=== PATIENT | female | born 1985 | race Caucasian/White ===

== ENCOUNTER 2017-10-25 21:08 | Inpatient (IN) | payer BC, OTHER ==
[~2017-10-25 21:08] MED LIST: Bupivacaine/Epinephrine 0.25% 30 ML VIAL ONE
[2017-10-25] MEDS: Lactated Ringer's 1,000 ML IV SCH (21:30)
[2017-10-25 21:44] VITALS: BMI 34.9
[2017-10-25] MEDS ORDERED: Butorphanol Tartrate 1 MG/ML VIAL SLOW IVP PRN (21:58)
[2017-10-25] MEDS ORDERED: Ondansetron HCl/PF 4 MG/2 ML Vial IVP PRN (21:58)
[2017-10-25] MEDS ORDERED: Acetaminophen 500 MG TAB PO PRN (21:58)
[2017-10-25] MEDS ORDERED: HYDROcodone/Acetaminophen 5/325 mg Tablet PO PRN ×2 (21:58)
[2017-10-25] MEDS ORDERED: Ibuprofen 800 MG TAB PO PRN (21:58)
[2017-10-25] MEDS ORDERED: Lidocaine 1% (PF) 30 ML VIAL SC PRN (21:58)
[2017-10-25] MEDS ORDERED: Zolpidem Tartrate 5 MG TAB PO PRN (21:58)
[2017-10-25] MEDS ORDERED: NS / Oxytocin 40 units/1000ml 1,000 ML IV PRN (21:58)
[2017-10-25] MEDS ORDERED: Promethazine HCl 25 MG/ML VIAL IM PRN (21:58)
--- NOTE | 2017-10-25 22:08 | PDOC.LDHP ---
Labor and Delivery H&P Chief complaint: contractions HPI: 32 yo WF presents c/o regular UCs at home. Denies SROM, bleeding. She is releasing infant. Current gestational age (weeks): 38 Due date: 11/09/17 Dating criteria: first trimester ultrasound Grav: 5 Para: 4 OB History Details: PNC with Dr. Wong. H/o x4 at term. Current complications: none Abnormal US findings: No Past Medical History: none Current medications: pre- vitamins Previous surgical history: none Allergies/Adverse Reactions: Allergies Allergy/AdvReac Type Severity Reaction Status Date / Time Sulfa (Sulfonamide Allergy Verified 10/31/15 00:31 Antibiotics) Social history: other - Physical Exam Vital signs reviewed and normal: yes General: NAD Heart: RRR Lungs: CTAB Abdomen: gravid Extremeties: trace edema [place] contractions every: q 5-7 mins - Vaginal Exam cm dilated: 6 Effacement: 75% Station: -1 - OB Labs Blood type: O RH: positive Antibody Screen: negative HIV: negative RPR: negative HEPSAg: negative 1 hour GCT: negative GBS: positive Rubella: immune - Assessment L&D Assessment: term patient in labor - Plan Plan: admit to L&D, labor augmentation if indicated, GBS antibiotic prophylaxis
[2017-10-25] MEDS ORDERED: Penicillin G Potassium 5 MILL.UNITS in Sodium Chloride 0.9% 100 ML IVPB SCH (22:15)
[2017-10-25] MEDS ORDERED: Lactated Ringer's 1,000 ML IV SCH (22:15)
[2017-10-25] MEDS ORDERED: NS w/ Oxytocin 10 units 500 ML IV SCH (22:15)
[2017-10-25 22:36] LABS: Hemoglobin 13.3 g/dL (12.0-16.0); Mean Corpuscular HGB CONC 34.2 g/dL (32.0-36.0); Mean Corpuscular Volume 90.5 fl (81.0-99.0); Mean Platelet Volume 7.6 fL (7.4-10.4); Platelet Count 233 thou/uL (130-400); RBC Distribution Width 12.3 % (11.5-14.5); Red Blood Cell (RBC) Count 4.28 mill/uL (4.20-5.40); White Blood Cell (WBC) Count 8.5 thou/uL (4.8-10.8)
[2017-10-25] MEDS ORDERED: Bupivacaine 0.5% 20 ML, fentaNYL Citrate/PF 400 MCG in Sodium Chloride 0.9% 72 ML EPIDURAL SCH (22:45)
[2017-10-25 23:12] LABS: Syphilis Antibody Nonreactive (Nonreactive); Syphilis Antibody Index 0.17 S/CO (<1.00 Non-Reactive)
[2017-10-25 23:35] LABS: HBSAg Index 0.21 S/CO (0-0.99); Hep B Surf Ag Non-Reactive S/CO (NonReactive)
[2017-10-26] MEDS ORDERED: ePHEDrine/0.9% NaCl/PF SYRINGE 50 mg/10 ml SLOW IVP PRN (01:21)
[2017-10-26] MEDS ORDERED: Naloxone HCl 0.4 mg/ml Vial IVP PRN ×2 (01:21)
[2017-10-26] MEDS ORDERED: Hydrocerin (Eucerin) Cream 120 gm Jar TOP PRN (01:21)
[2017-10-26] MEDS ORDERED: Lactated Ringer's 500 ML IV PRN (01:21)
[2017-10-26] MEDS ORDERED: Ondansetron HCl/PF 4 MG/2 ML Vial IVP PRN ×2 (01:21→21:07)
[2017-10-26] MEDS ORDERED: Promethazine HCl 25 MG/ML VIAL IM PRN (01:21)
[2017-10-26] MEDS ORDERED: Acetaminophen 325 MG TAB PO PRN (01:21)
[2017-10-26] MEDS ORDERED: diphenhydrAMINE 50 MG/ML VIAL IVP PRN (01:21)
[2017-10-26] MEDS ORDERED: Fentanyl 4mcg/Marcaine 0.1% Cassette 100 ML EPIDURAL SCH (01:30)
[2017-10-26] MEDS ORDERED: Communication Order-Pharmacy FS SCH (01:30)
--- NOTE | 2017-10-26 02:42 | PDOC.EVN ---
Event Note - Event Note Event Note: Comfortable with epidural. SVE remains 6cm/70/0, vtx. AROM- clear. FHTs reassurring. UCs q 5-7 mins. Pen G x1 dose given, next dose at 3 am. Watch progress, augment if needed.
[2017-10-26] MEDS: Penicillin G 2.5 MILL.units 2.5 MILL.UNITS in Premix Bag 1 BAG IVPB SCH ×2 (03:10→23:35)
[2017-10-26] MEDS: Lactated Ringer's 1,000 ML IV SCH ×2 (03:14→23:34)
[2017-10-26] MEDS ORDERED: NS w/ Oxytocin 10 units 500 ML ONE (05:03)
--- NOTE | 2017-10-26 05:09 | PDOC.EVN ---
Event Note - Event Note Event Note: SVE unchanged per RN. FHTs reassuring. UCs irregular q 4-5. Start pitocin augmentation.
[2017-10-26] MEDS ORDERED: Methylergonovine 0.2 MG/ML VIAL ONE (07:02)
[2017-10-26] MEDS ORDERED: Misoprostol 200 MCG TAB ONE (07:07)
--- NOTE | 2017-10-26 07:12 | PDOC.OPDEL ---
OB Operative/Delivery Note Delivery Dr/Surgeon: Dario Pre-Delivery Diagnosis: active labor Procedure/Post Delivery Dx: spontaneous vaginal delivery Anesthesia: epidural - Additional Findings/Plan Placenta delivered: spontaneous Repaired Obstetrical Laceration: none Estimated blood loss: 400 cc Compilations/Other Findings: Viable male. OA over intact perineum. Apgars 9/9. Atony x 1 tx. with Methergine .2 mg IM with good response. To recover in L&D. Post delivery plan: routine recovery
[2017-10-26] MEDS ORDERED: Bisacodyl 10 MG SUPP PR PRN ×2 (09:52→21:07)
[2017-10-26] MEDS ORDERED: Misoprostol 200 MCG TAB VAG SCH (09:52)
[2017-10-26] MEDS ORDERED: Acetaminophen/Codeine 30-300mg Tablet PO PRN ×3 (09:52→21:07)
[2017-10-26] MEDS ORDERED: Adacel (T-DAP) 0.5 ML VIAL IM ONE (09:52)
[2017-10-26] MEDS ORDERED: Milk Of Magnesia 30 ML UDCUP PO PRN ×2 (09:52→21:07)
[2017-10-26] MEDS ORDERED: Zolpidem Tartrate 5 MG TAB PO PRN ×2 (09:52→21:07)
[2017-10-26] MEDS ORDERED: HYDROcodone/Acetaminophen 5/325 mg Tablet PO PRN ×2 (09:52)
[2017-10-26] MEDS ORDERED: NS / Oxytocin 40 units/1000ml 1,000 ML IV SCH ×2 (09:52→21:07)
[2017-10-26] MEDS ORDERED: Ferrous Sulfate 325 MG TAB PO SCH (17:00)
[2017-10-26] MEDS ORDERED: Docusate Calcium (SURFAK) 240 MG CAP PO SCH ×2 (21:00→21:30)
[2017-10-26] MEDS ORDERED: diphenhydrAMINE 25 MG CAP PO PRN (21:07)
[2017-10-26] MEDS ORDERED: traMADol HCl 50 MG TAB PO PRN ×2 (21:07)
[2017-10-26] MEDS ORDERED: Lanolin Ointment 7 GM TUBE TOP PRN (21:07)
[2017-10-26] MEDS ORDERED: Measles/Mumps/Rubella 10 MCG/0.5 ML VIAL SC ONE (21:07)
[2017-10-26] MEDS: Ibuprofen 800 MG TAB PO SCH (21:41)
[2017-10-26] MEDS: Docusate Calcium (SURFAK) 240 MG CAP PO SCH (21:41)
[2017-10-27] MEDS: Ibuprofen 800 MG TAB PO SCH (06:15)
--- NOTE | 2017-10-27 07:47 | DIS ---
DATE OF ADMISSION: 10/25/2017 DATE OF DISCHARGE: 10/27/2017 ADMITTING DIAGNOSIS: Labor at term. DISCHARGE DIAGNOSIS: Labor at term. PROCEDURE: Term spontaneous vaginal delivery. CONSULTATIONS: None. HOSPITAL COURSE: The patient is a 32-year-old G5, now P5 female who presented to Labor and Delivery with an intrauterine at 38 weeks, complaining of uterine contractions. She was diagnosed a s laboring with a cervical exam of 6 cm and was admitted for expectant management. She ultimately de livered by term spontaneous vaginal delivery and was transferred to for care af ter recovery. She has had an uncomplicated course. Today is day #1, she repor ts that she is tolerating p.o., voiding on her own, having decreased lochia and good pain control. More franklin has been placed in the care of the adoptive parents and patient is interested in discharge to [facility]. DISCHARGE PHYSICAL EXAMINATION: VITAL SIGNS: Today, blood pressure is 122/63, temperature 98.5, pulse of 87, respiratory rate of 18. GENERAL: She appears to be in no acute distress. She is alert and oriented, cooperative and pleasan t to interact with. HEENT: Head is normocephalic, atraumatic. ABDOMEN: Fundus is firm at the umbilicus. EXTREMITIES: Nontender with symmetrical, minimal edema. DISCHARGE INSTRUCTIONS: The patient is being discharged to home. She has instructions to follow up with Dr. Wong in 6 weeks. She has been counseled to seek medical attention sooner if she experience s fever, increasing pain or bleeding. She is comfortable going home on [id number] ibuprofen fo r pain control.
[2017-10-27] MEDS ORDERED: Ferrous Sulfate 325 MG TAB PO SCH (08:00)
[2017-10-27] MEDS ORDERED: Prenatal Vitamin 1 TAB PO SCH ×2 (09:00)
[2017-10-27] MEDS: Docusate Calcium (SURFAK) 240 MG CAP PO SCH (09:08)
[2017-10-27 09:56] VITALS: BP 110/72; TEMP 97.7
== END 2017-10-27 11:20 | disposition home or self-care (01) | DRG 775 ==
LOC: L&D/OP 21:08 → L&D 22:20 → 3SW 10-26 15:42
PROVIDERS: ADMIT Obstetrics & Gynecology; ATTEND Obstetrics & Gynecology
PROC: 10E0XZZ Delivery of Products of Conception, External Approach (ICD-10-PCS; principal; 2017-10-26)
DX: O99.824 Streptococcus B carrier state complicating childbirth (principal); Z3A.38 38 weeks gestation of pregnancy; Z37.0 Single live birth
CPT/HCPCS: 36415; 85027; 86780; 86850; 86900; 86901; 87340; J2001; J2210; J2540; J2550; J3010; J3490; J7050

== ENCOUNTER 2018-01-31 13:16 | Emergency (ER) | payer BC ==
[2018-01-31 13:54] LABS: BHCG - Serum Negative (NEGATIVE); Pregs Control Background? CLEAR/WHITE (CLR/WHITE); Pregs Control Bar Appear? YES (CONTROL BAR)
[2018-01-31 14:12] LABS: ALT (SGPT) 31 U/L (8-55); AST (SGOT) 25 U/L (5-34); Albumin 4.5 g/dL (3.5-5.0); Alkaline Phosphatase 211 U/L (40-150); Anion Gap 16 mmol/L (10-20); BUN (Urea Nitrogen) 9 mg/dL (7.0-18.7); Bilirubin, Total 0.7 mg/dL (0.2-1.2); Calc. Creatinine Clearance 0 mL/min (70-130); Calcium 9.7 mg/dL (7.8-10.44); Carbon Dioxide 21 mmol/L (22-29); Chloride 103 mmol/L (98-107); Estimated GFR-MDRD 59; Globulin 4.1 g/dL (2.4-3.5); Glucose 96 mg/dL (70-105); Lipase 24 U/L (8-78); Potassium 4.4 mmol/L (3.5-5.1); Protein, Total 8.6 g/dL (6.0-8.3); Sodium 136 mmol/L (136-145)
[2018-01-31 14:16] LABS: Band 1 % (5-11); Eosinophils 29 % (0-10); Hemoglobin 15.8 g/dL (12.0-16.0); Lymphocytes 21 % (21-51); MDiff Complete? YES; Mean Corpuscular HGB CONC 34.1 g/dL (32.0-36.0); Mean Corpuscular Hemoglobin 29.6 pg (27.0-31.0); Mean Corpuscular Volume 86.9 fL (78.0-98.0); Mean Platelet Volume 7.7 fL (7.4-10.4); Monocytes 6 % (0-10); Neutrophil 43 % (42-75); Platelet Count 428 thou/uL (130-400); RBC Distribution Width 11.4 % (11.5-14.5); Red Blood Cell (RBC) Count 5.32 mill/uL (4.20-5.40)
--- NOTE | 2018-01-31 15:00 | ULT ---
RIGHT UPPER QUADRANT ULTRASOUND: HISTORY: Right upper quadrant pain. FINDINGS: The liver, gallbladder, right kidney, and pancreas appear normal. The common duct measures 2 mm in d iameter. No free fluid is seen in the Bishop's pouch. IMPRESSION: Normal examination. POS: [facility]
[2018-01-31 16:19] LABS: Bilirubin Small (Negative); Blood, Urine Negative (Negative); Clarity CLEAR (Clear); Glucose, Urine (Dipstick) Negative (Negative); Leukocyte Trace (Negative); Nitrite Negative (Negative); Protein, Urine (Dipstick) Trace mg/dL (Neg-Trace); Specific Gravity, Urine 1.027 (1.002-1.036); Urobilinogen 0.2 mg/dL (0.2-1.0); pH, Urine 5.5 (5.0-9.0)
[2018-01-31 16:22] LABS: Bacteria/HPF None Seen HPF (None Seen); Hyaline Casts/LPF 0-3 HYALINE CAST LPF (0-3 Hyaline); Pathc Cast-AUWi Flag 0.14 (0-2.49); RBC/HPF 0-3 HPF (0-3); Squamous Epithelial 0-3 HPF (0-3)
== END 2018-01-31 17:10 | disposition home or self-care (01) ==
LOC: ERS 13:16
DX: R10.11 Right upper quadrant pain (principal); R19.7 Diarrhea, unspecified; F32.9 Major depressive disorder, single episode, unspecified; Z79.899 Other long term (current) drug therapy
CPT/HCPCS: 76705; 80053; 81003; 81015; 83690; 84703; 85025; 96360; 96361

== ENCOUNTER 2018-08-21 09:58 | Emergency (ER) | payer BC ==
[2018-08-21] MEDS ORDERED: Acetaminophen 500 MG TAB ONE (11:43)
--- NOTE | 2018-08-21 12:53 | CT ---
CT BRAIN WITHOUT CONTRAST: Comparison: None. History: Gradual onset of intermittent frontal headache for one week. Technique: Multiple contiguous axial images were obtained in a CT of the brain without contrast. FINDINGS: The brain is normal in morphology and attenuation without focal lesions or confluent areas of infarct ion. There is no evidence of hydrocephalus, intracranial hemorrhage, or extraaxial fluid collections. The calvarium and overlying soft tissues are unremarkable. There is moderate to severe diffuse sinus disease with opacification of the majority of the visualized ethmoid air cells, sphenoid sinuses and maxillary sinuses. The mastoid air cells and middle ears are well aerated. IMPRESSION: 1. No evidence of acute intracranial abnormality. 2. Moderate to severe diffuse sinus disease. POS: [facility]
== END 2018-08-21 11:46 | disposition home or self-care (01) ==
LOC: ERS 09:58
DX: J01.90 Acute sinusitis, unspecified (principal); F32.9 Major depressive disorder, single episode, unspecified
CPT/HCPCS: 70450

== ENCOUNTER 2019-03-30 22:31 | Inpatient (IN) | payer BC ==
[2019-03-30] MEDS ORDERED: hydrALAZINE 20 MG/ML VIAL SLOW IVP PRN (22:45)
[2019-03-30 23:09] VITALS: BMI 31.8
--- NOTE | 2019-03-30 23:26 | PDOC.FPROB ---
FMR OB H&P: HPI - History of Present Illness Chief Complaint: ctx Indentification: 33 y/o @ 37.6 WGA by LMP History of Present Illness: presents for ctx. The patient reports the ctx have been going on and off the past 3 days, but have worsened in severity today. She lives an hour [place] a half away so they wanted to come get checked out. Denies LOF, VB, d/c. +FM. Primary Care Physician: Dr. Wong FMR OB H&P: Current - Care : 6 Para: [id number] Gestational age: 37w6d Due date: 04/16/19 - OB Labs Blood type: O RH: positive Antibody Screen: negative HIV: negative RPR: negative HepBsAg: negative Rubella: immune Quad screen: negative Urine drug screen: negative Gonorrhea: negative Chlamydia: negative 1 hour gtt: 102 FMR OB H&P: History - Past Medical History PMH: None - OB History OB History: 5 prior term Surrogate for this and one prior - ELEMENTARY LIBRARIAN History ELEMENTARY LIBRARIAN History: Denies h/o STI's - Surgical History Sx History: BTL and tubal reversal - Social History Social History: Denies tobacco, EtOH, or drug use - Family History Family History: Denies FMR OB H&P: Medications - Current Home Medications: Medication Instructions Recorded Confirmed Type PNV#24/Iron AA Charo/FA/DHA 1 each PO DAILY 10/30/15 03/30/19 History [ DHA+Complete ] Allergies/Adverse Reactions: Allergies Allergy/AdvReac Type Severity Reaction Status Date / Time Sulfa (Sulfonamide Allergy Verified 10/31/15 00:31 Antibiotics) FMR OB H&P: ROS - Review of Systems General: denies: fever/chills, weight/appetite/sleep changes Eyes: denies: vision changes, double vision ENT: denies: nasal congestion, sore throat Cardiovascular: denies: chest pain, edema Respiratory: denies: cough, shortness of breath Gastrointestinal: reports: abdominal pain, nausea Genitourinary (Female): reports: contractions, vaginal pressure. denies: dysuria, hematuria, vaginal discharge, vaginal bleeding Musculoskeletal: denies: pain, tenderness Neurologic: denies: numbness, weakness Integumentary: denies: itching, rash Hematologic/Lymphatic: denies: prolonged or excessive bleeding, enlarged lymph nodes Psychological: denies: depression, anxiety FMR OB H&P: Vital Signs - Maternal Vital signs: BP 121/78, HR 87, RR 16 - Heart Tones Baseline: 125 Variability: moderate Acceleration: present Deceleration: absent Category: category 1 [place] contractions every: 1-3 minutes FMR OB H&P: Physical Exam - Physical Exam General: NAD, awake, alert and oriented HEENT: normocephalic and atraumatic, MMM, conjunctiva clear, no scleral icterus , grossly normal vision, grossly normal hearing Neck: FROM, no LAD Heart: pulses present, no edema General: no respiratory distress Abdomen: soft, gravid, non-tender Musculoskeletal: pulses present, FROM in all four extremities Neurological: no clonus, no focal deficit Skin: good tugor, capillary refill <2 seconds - Pelvic Exam SVE: 3-4/70/-1 FMR OB H&P: A/P - Problem List (1) Uterine contractions during Current Visit: Yes Status: Acute Code(s): O62.2 - OTHER UTERINE INERTIA Assessment and Plan: Pt mariel every 1-3 minutes with SVE 3-/70/-1. -Will monitor FHT and recheck cervix in 2 hours (2) Term Current Visit: Yes Status: Acute Code(s): Z34.90 - ENCNTR FOR SUPRVSN OF NORMAL , UNSP, UNSP TRIMESTER Assessment and Plan: Plan as above Disposition: dispo pending cervical check in 2 hours Discussion: Date/Time: 03/30/19 7189 This H&P was discussed with Dr. Bishop who agrees with the above documentation and plan. Signature: Angie Patricio MD, PGY-3 Addendum - Attending - Attending Attestation Date/Time: 03/31/19 [id number] I personally evaluated the patient and discussed the management with Dr. Patricio. I agree with the History, Examination, Assessment and Plan documented above.
[2019-03-31] MEDS ORDERED: Ibuprofen 800 MG TAB PO PRN (03:40)
[2019-03-31] MEDS ORDERED: NS / Oxytocin 40 units/1000ml 1,000 ML IV PRN (03:40)
[2019-03-31] MEDS ORDERED: Promethazine HCl 25 MG/ML VIAL IM PRN (03:40)
[2019-03-31] MEDS ORDERED: Lidocaine 1% (PF) 30 ML VIAL SC PRN (03:40)
[2019-03-31] MEDS ORDERED: Ondansetron PF 4 MG/2 ML Vial IVP PRN ×2 (03:40→13:05)
[2019-03-31] MEDS ORDERED: hydrALAZINE 20 MG/ML VIAL SLOW IVP PRN ×2 (03:40→13:05)
[2019-03-31] MEDS ORDERED: Fentanyl 4 mcg/Bup 0.1% Cadd 100 ML ONE ×2 (04:06→10:28)
[2019-03-31 04:23] LABS: Hemoglobin 12.1 g/dL (12.0-16.0); Mean Corpuscular HGB CONC 34.3 g/dL (32.0-36.0); Mean Corpuscular Hemoglobin 28.6 pg (27.0-31.0); Mean Corpuscular Volume 83.4 fL (78.0-98.0); Mean Platelet Volume 7.4 fL (7.4-10.4); Platelet Count 266 thou/uL (130-400); RBC Distribution Width 14.7 % (11.5-14.5); Red Blood Cell (RBC) Count 4.22 mill/uL (4.20-5.40); White Blood Cell (WBC) Count 10.7 thou/uL (4.8-10.8)
[2019-03-31 04:53] LABS: HBSAg Index 0.21 S/CO (0-0.99); Hep B Surf Ag Non-Reactive S/CO (NonReactive)
[2019-03-31 05:07] LABS: Syphilis Antibody Nonreactive (Nonreactive); Syphilis Antibody Index 0.12 S/CO (<1.00 Non-Reactive)
--- NOTE | 2019-03-31 08:00 | PDOC.EVN ---
Event Note - Event Note Event Note: Asked to AROM by Dr. Wong. Comfortable with epidural. SVE= 5/80/0, vtx. AROM clear with bloody show. FHTs reassuring. UCs q 5 mins.
[2019-03-31] MEDS ORDERED: NS w/ Oxytocin 10 units 500 ML ONE (09:41)
[2019-03-31] MEDS: Lactated Ringer's 1,000 ML IV SCH ×2 (10:32→16:49)
--- NOTE | 2019-03-31 11:45 | PDOC.OPDEL ---
OB Operative/Delivery Note Delivery Dr/Surgeon: Marvin Pre-Delivery Diagnosis: active labor Procedure/Post Delivery Dx: spontaneous vaginal delivery Weeks gestation: 38 - Findings A Sex: male - 1 min: 9 - 5 min: 9 - Additional Findings/Plan Placenta delivered: spontaneous Repaired Obstetrical Laceration: none Estimated blood loss: <100ml Post delivery plan: routine recovery
[2019-03-31] MEDS ORDERED: diphenhydrAMINE 25 MG CAP PO PRN (13:05)
[2019-03-31] MEDS ORDERED: Bisacodyl 10 MG SUPP PR PRN (13:05)
[2019-03-31] MEDS ORDERED: Benzocaine-Menthol 82.5 ML CAN TOP PRN (13:05)
[2019-03-31] MEDS ORDERED: Preparation H Ointment 28 GM TUBE PR PRN (13:05)
[2019-03-31] MEDS ORDERED: traMADol HCl 50 MG TAB PO PRN (13:05)
[2019-03-31] MEDS ORDERED: NS / Oxytocin 40 units/1000ml 1,000 ML IV SCH (13:05)
[2019-03-31] MEDS ORDERED: Adacel (T-DAP) 0.5 ML SYRINGE IM ONE (13:05)
[2019-03-31] MEDS ORDERED: Milk Of Magnesia 30 ML UDCUP PO PRN (13:05)
[2019-03-31] MEDS ORDERED: HYDROcodone/Acetaminophen 5/325 mg Tablet PO PRN (13:05)
[2019-03-31] MEDS ORDERED: Lanolin Ointment 7 GM TUBE TOP PRN (13:05)
[2019-03-31] MEDS ORDERED: Ibuprofen 800 MG TAB PO SCH (14:00)
[2019-03-31] MEDS: Ferrous Sulfate 325 MG TAB PO SCH (16:39)
[2019-03-31] MEDS: Ibuprofen 800 MG TAB PO SCH (17:40)
[2019-04-01] MEDS: Docusate Calcium (SURFAK) 240 MG CAP PO SCH ×3 (01:28→20:31)
[2019-04-01] MEDS: Ibuprofen 800 MG TAB PO SCH ×3 (01:30→17:50)
--- NOTE | 2019-04-01 07:48 | PDOC.PP ---
Post Progress Note Post Day #: 1 Subjective: doing well, minimal lochia, is staying until FOB gets here tomorrow PO intake tolerated: yes Flatus: yes Ambulation: yes Vital Signs (12 hours) Temp Pulse Resp BP Pulse Ox 04/01/19 05:10 97.3 F L 65 16 110/61 04/01/19 01:30 98.3 F 85 16 118/60 03/31/19 20:10 98.2 F 65 16 108/61 99 Weight Weight 203 lb - Physical Examination General: NAD Respiratory: non-labored breathing Abdominal: no distention Fundus firm & at: below umb Neurological: no gross focal deficits Psychiatric: A&Ox3, normal affect Result Diagrams: 03/31/19 04:02 Additional Labs: Post Labs Blood Type O POSITIVE 03/31/19 04:02 Hep Bs Antigen Non-Reactive S/CO (NonReactive) 03/31/19 04:02 (1) Surrogate Code(s): Z33.3 - STATE, GESTATIONAL CARRIER Status: Acute (2) Vaginal delivery Code(s): O80 - ENCOUNTER FOR FULL-TERM UNCOMPLICATED DELIVERY Status: Acute - Assessment/Plan PPD1, doing well, will stay to nurse baby until FOB arrives tomorrow.
[2019-04-01] MEDS: Ferrous Sulfate 325 MG TAB PO SCH ×2 (09:05→16:11)
[2019-04-01] MEDS: Prenatal Vitamin 1 TAB PO SCH (09:05)
[2019-04-01 19:52] VITALS: TEMP 98.2
[2019-04-02] MEDS: Ibuprofen 800 MG TAB PO SCH ×2 (01:54→09:43)
[2019-04-02 08:07] VITALS: BP 117/68
[2019-04-02] MEDS: Docusate Calcium (SURFAK) 240 MG CAP PO SCH (09:43)
[2019-04-02] MEDS: Prenatal Vitamin 1 TAB PO SCH (09:43)
[2019-04-02] MEDS: Ferrous Sulfate 325 MG TAB PO SCH (09:43)
--- NOTE | 2019-04-02 12:47 | PDOC.PP ---
Post Progress Note Post Day #: 2 Subjective: doing well, no concerns, okay w B and B until FOB arrives tomorrow PO intake tolerated: yes Flatus: yes Ambulation: yes Vital Signs (12 hours) Temp Pulse Resp BP Pulse Ox 04/02/19 08:06 98.2 F 67 20 117/68 100 Weight Weight 203 lb - Physical Examination General: NAD Respiratory: non-labored breathing Abdominal: no distention Psychiatric: A&Ox3, normal affect Result Diagrams: 03/31/19 04:02 Additional Labs: Post Labs Blood Type O POSITIVE 03/31/19 04:02 Hep Bs Antigen Non-Reactive S/CO (NonReactive) 03/31/19 04:02 (1) Surrogate Code(s): Z33.3 - STATE, GESTATIONAL CARRIER Status: Acute (2) Vaginal delivery Code(s): O80 - ENCOUNTER FOR FULL-TERM UNCOMPLICATED DELIVERY Status: Acute - Assessment/Plan PPD2, doing well, no concerns. Plan for DC today and will B and B until biological father arrives.
== END 2019-04-02 14:30 | disposition home or self-care (01) | DRG 807 ==
LOC: L&D/OP 22:31 → L&D 03-31 03:43 → 3SW 03-31 17:14
PROVIDERS: ADMIT Obstetrics & Gynecology; ATTEND Obstetrics & Gynecology
PROC: 10E0XZZ Delivery of Products of Conception, External Approach (ICD-10-PCS; principal; 2019-03-31)
PROC: 10907ZC Drainage of Amniotic Fluid, Therapeutic from Products of Conception, Via Natural or Artificial Opening (ICD-10-PCS; 2019-03-31)
DX: O80 Encounter for full-term uncomplicated delivery (principal); Z37.0 Single live birth; Z3A.37 37 weeks gestation of pregnancy; Z88.2 Allergy status to sulfonamides; Z33.3 Pregnant state, gestational carrier
CPT/HCPCS: 36415; 51702; 85027; 86780; 86850; 86900; 86901; 87340; 99285; J2590